=== PATIENT | female | born 1975 | race Caucasian/White ===

== ENCOUNTER 2018-04-24 21:14 | Emergency (ER) | payer OTHER ==
[~2018-04-24] VITALS: Ht 157.5 cm; Wt 70.8 kg
[2018-04-24 21:35] VITALS: Ht 157.5 cm; Wt 70.8 kg
[2018-04-25 00:52] VITALS: BP 130/71
== END 2018-04-25 00:52 | disposition home or self-care (01) ==
LOC: ED 21:14
DX: M25.521 Pain in right elbow (principal); I10 Essential (primary) hypertension; W20.8XXA Other cause of strike by thrown, projected or falling object, initial encounter; Y93.89 Activity, other specified; Y92.89 Other specified places as the place of occurrence of the external cause; Y99.8 Other external cause status
CPT/HCPCS: J1885